=== PATIENT | female | born 1965 | race Caucasian/White ===

== ENCOUNTER → 2020-12-22 | Day surgery (SDC) | payer OTHER ==
[~2020-12-22] MED LIST: ABILIFY5 MG PO; ANTIVERT25 MG PO; DICLOFENAC SODI75 MG PO; GABAPENTIN600 MG PO; LISINOPRIL-HCT1 EAC2 PO; METOPROLOL SUC100 MG PO; NAPROXEN500 MG PO; PERCOCET 5-3251 EACH PO; ROBAXIN750 MG PO; SELENIUM200 MC2 PO; SEROQUEL 100MG100 MG PO; SUMATRIPTAN SU100 MG PO; TOPAMAX25 MG PO
[2020-12-22 07:17] LABS: HCT 39.1 % (37.0-47.0); HGB 12.4 g/dl (12.5-16.0); MCH 28.7 pg (25.0-31.0); MCHC 31.7 g/dL (32.0-36.0); MCV 90.5 fL (78.0-100.0); MPV 9.8 fL (6.0-9.5); RBC 4.32 M/uL (4.20-5.40); RDW 13.5 % (11.5-14.0)
[2020-12-22 07:22] LABS: ALBUMIN 3.5 g/dL (3.4-5.0); BILIRUBIN - TOTAL 0.3 mg/dL (0.2-1.0); BUN/CREAT RATIO (CALC) 30.6 RATIO; CREATININE 0.49 mg/dL (0.51-0.95); GLOBULIN (CALCULATION) 3.8 g/dL; POTASSIUM 3.9 mmol/L (3.5-5.1); TOTAL PROTEIN 7.3 g/dL (6.4-8.2)
== END | disposition home or self-care (01) ==
LOC: FAS 06:11
PROVIDERS: Orthopaedic Surgery
DX: G56.01 Carpal tunnel syndrome, right upper limb (principal); I10 Essential (primary) hypertension; R56.9 Unspecified convulsions; F41.9 Anxiety disorder, unspecified; F32.9 Major depressive disorder, single episode, unspecified; K58.9 Irritable bowel syndrome, unspecified; Z91.040 Latex allergy status; Z91.048 Other nonmedicinal substance allergy status; Z79.899 Other long term (current) drug therapy
CPT/HCPCS: 36415; 80053; J1100; J1885; J2250; J2405; J2704; J3010; J7120